=== PATIENT | female | born 1970 | race Caucasian/White ===

== ENCOUNTER 2016-03-10 21:35 | Emergency (ER) | payer MEDICAID ==
[~2016-03-10] VITALS: Ht 167.6 cm; Wt 61.2 kg
[2016-03-10 21:41] VITALS: BP 110/71
[2016-03-10] MEDS ORDERED: SILVER SULFADIAZINE CREAM 25 GM TUBE ONE (21:46)
[2016-03-10] MEDS ORDERED: HYDROCODONE/APAP 5/325MG 1 EACH TABLET ONE (21:48)
[2016-03-10] MEDS ORDERED: HYDROCODONE/APAP 5/325MG 1 EACH TABLET PO ONE (22:00)
[2016-03-10] MEDS ORDERED: SILVER SULFADIAZINE CREAM 25 GM TUBE TP ONE (22:00)
== END 2016-03-10 22:10 | disposition home or self-care (01) ==
LOC: ER 21:40
DX: T23.102A Burn of first degree of left hand, unspecified site, initial encounter (principal); X15.3XXA Contact with hot saucepan or skillet, initial encounter; Y93.89 Activity, other specified; Y92.89 Other specified places as the place of occurrence of the external cause; Y99.8 Other external cause status
CPT/HCPCS: A4606; Z7610

== ENCOUNTER 2016-05-01 15:55 | Emergency (ER) | payer MEDICAID ==
[~2016-05-01] VITALS: Ht 167.6 cm; Wt 61.2 kg
[2016-05-01 16:32] LABS: KETONES,URINE Negative (NEGATIVE); LEUKOCYTE ESTERASE ,URINE Large (NEGATIVE)
[2016-05-01 16:35] LABS: ADD UA MICROSCOPIC YES
[2016-05-01 16:46] LABS: ADD URINE CULTURE YES; RBC,URINE 21-50 /HPF (0-2); WBC,URINE 51-80 /HPF (0-3)
[2016-05-01 16:53] LABS: PREGNANCY TEST URINE QUAL NEGATIVE (NEGATIVE)
[2016-05-01 17:09] VITALS: BP 105/62
== END 2016-05-01 17:09 | disposition home or self-care (01) ==
LOC: ER 15:57
DX: N39.0 Urinary tract infection, site not specified (principal)
CPT/HCPCS: 81001; 84703; 87086; 99284; A4606; Z7610; 81000-TC; 87186-TC

== ENCOUNTER 2016-10-20 15:25 | Emergency (ER) | payer BC, MEDICAID ==
[~2016-10-20] VITALS: Ht 167.6 cm; Wt 63.5 kg
[2016-10-20 15:33] VITALS: BP 112/64
== END 2016-10-20 16:03 | disposition home or self-care (01) ==
LOC: ER 15:28
DX: N39.0 Urinary tract infection, site not specified (principal)
CPT/HCPCS: 99283; A4606; Z7610

== ENCOUNTER 2016-11-15 03:59 | Emergency (ER) | payer MEDICAID ==
[~2016-11-15] VITALS: Ht 167.6 cm; Wt 63.5 kg
[2016-11-15 04:05] VITALS: BP 100/64
[2016-11-15 04:35] LABS: APPEARANCE,URINE CLOUDY (CLEAR); BILIRUBIN,URINE NEGATIVE (NEGATIVE); BLOOD, URINE 3+ Ery/uL (NEGATIVE); COLOR,URINE YELLOW (YELLOW); KETONES,URINE NEGATIVE (NEGATIVE); LEUKOCYTE ESTERASE ,URINE 2+ (NEGATIVE); NITRITE, URINE NEGATIVE (NEGATIVE); PROTEIN,URINE TRACE mg/dl (NEGATIVE); UGLUCOSE NEGATIVE (NEGATIVE); UROBILINOGEN,URINE 0.2 EU/dL (0.2)
[2016-11-15 04:39] LABS: PREGNANCY TEST URINE QUAL NEGATIVE (NEGATIVE)
[2016-11-15 05:26] LABS: BACTERIA,URINE Few /HPF (None Seen); RBC,URINE 21-50 /HPF (0-2); SQUAMOUS EPITHELIAL CELL,UR Few /HPF (None Seen); WBC,URINE 20-25 /HPF (0-3)
== END 2016-11-15 05:47 | disposition home or self-care (01) ==
LOC: ER 04:10
DX: N39.0 Urinary tract infection, site not specified (principal)
CPT/HCPCS: 81000-TC; 84703-TC; 87086-TC; 87186-TC; A4606; Z7610

== ENCOUNTER 2017-03-14 08:36 | Emergency (ER) | payer MEDICAID ==
[~2017-03-14] VITALS: Ht 167.6 cm; Wt 62.6 kg
[2017-03-14 08:36] VITALS: BP 111/61
[2017-03-14] MEDS ORDERED: NITROFURANTOIN/NITROFURAN MAC 100 MG CAPSULE PO ONE (09:30)
[2017-03-14] MEDS ORDERED: NITROFURANTOIN/NITROFURAN MAC 100 MG CAPSULE ONE (09:33)
[2017-03-14 10:30] LABS: APPEARANCE,URINE CLOUDY (CLEAR); BILIRUBIN,URINE NEGATIVE (NEGATIVE); BLOOD, URINE 3+ Ery/uL (NEGATIVE); COLOR,URINE YELLOW (YELLOW); KETONES,URINE NEGATIVE (NEGATIVE); LEUKOCYTE ESTERASE ,URINE 2+ (NEGATIVE); NITRITE, URINE POSITIVE (NEGATIVE); PROTEIN,URINE 1+ mg/dl (NEGATIVE); UGLUCOSE TRACE mg/dL (NEGATIVE)
[2017-03-14 10:38] LABS: BACTERIA,URINE Few /HPF (None Seen); RBC,URINE 21-50 /HPF (0-2); SQUAMOUS EPITHELIAL CELL,UR Few /HPF (None Seen); WBC,URINE 51-80 /HPF (0-3)
== END 2017-03-14 11:01 | disposition home or self-care (01) ==
LOC: ER 08:38
DX: N39.0 Urinary tract infection, site not specified (principal); Z00.00 Encounter for general adult medical examination without abnormal findings
CPT/HCPCS: 71046; 81001; 87077; 87086; 87186; 99285; A4606; Z7610; 81000-TC

== ENCOUNTER 2017-08-24 15:38 | Emergency (ER) | payer BC, MEDICAID ==
[~2017-08-24] VITALS: Ht 167.6 cm; Wt 61.2 kg
[2017-08-24 16:13] LABS: APPEARANCE,URINE Clear (CLEAR); BILIRUBIN,URINE Negative (NEGATIVE); BLOOD, URINE Trace-lysed Ery/uL (NEGATIVE); COLOR,URINE Yellow (YELLOW); KETONES,URINE Negative (NEGATIVE); LEUKOCYTE ESTERASE ,URINE Moderate (NEGATIVE); NITRITE, URINE Negative (NEGATIVE); PROTEIN,URINE Negative (NEGATIVE); UGLUCOSE Negative (NEGATIVE); UROBILINOGEN,URINE 0.2 EU/dL (0.2)
[2017-08-24 16:22] LABS: BASOPHILS % (AUTO) 0.8 % (0.0-2.0); HEMATOCRIT 42 % (33-45); HEMOGLOBIN 14.2 g/dL (11.5-14.8); LYMPHOCYTES # (AUTO) 1.6 /CMM (0.8-4.8); LYMPHOCYTES % (AUTO) 31.8 % (20.0-44.0); MEAN CORPUSCULAR HEMOGLOBIN 31 PG (26.0-33.0); MEAN CORPUSCULAR HGB CONC 34 g/dl (31.0-36.0); MEAN CORPUSCULAR VOLUME 90 fL (82-100); MONOCYTES # (AUTO) 0.4 /CMM (0.1-1.30); NEUTROPHILS % (AUTO) 59.4 % (43.0-81.0); PLATELET COUNT (AUTO) 237 /CMM (150-450); RDW COEFFICIENT OF VARIATION 12.1 (11.5-15.0); RED BLOOD CELL COUNT(AUTO) 4.62 MIL/uL (4.0-5.2); WHITE BLOOD COUNT (AUTO) 5.1 K/uL (4.3-11.0)
[2017-08-24 16:22] LABS: BACTERIA,URINE Few /HPF (None Seen); SQUAMOUS EPITHELIAL CELL,UR Few /HPF (None Seen)
[2017-08-24] MEDS ORDERED: ONDANSETRON 4 MG TAB.RAPDIS ONE ×2 (16:23→16:50)
[2017-08-24] MEDS ORDERED: AMOXICILLIN 250 MG (16:26)
[2017-08-24] MEDS ORDERED: NITROFURANTOIN 100 MG (16:26)
[2017-08-24] MEDS ORDERED: ONDANSETRON 4 MG TAB.RAPDIS SL ONE (16:30)
[2017-08-24 16:32] LABS: CALCIUM, SERUM 9.6 mg/dL (8.5-10.1); CREATININE 0.8 mg/dL (0.6-1.3); POTASSIUM 3.9 mmol/L (3.5-5.1)
--- NOTE | 2017-08-24 16:56 | NUR ---
PT. VERBALIZED UNDERSTANDING OF AFTERCARE INSTRUCTIONS.Patient discharged to home in stable condition. Written and verbal after care instructions given. Patient verbalizes understanding of instruction.
[2017-08-24 16:58] VITALS: BP 130/76
== END 2017-08-24 17:03 | disposition home or self-care (01) ==
LOC: ER 15:39
DX: R42 Dizziness and giddiness (principal); N39.0 Urinary tract infection, site not specified
CPT/HCPCS: 36415; 80048; 81001; 84703; 85025; 87086; 99284; A4606; Z7610; 81000-TC; Q0162